=== PATIENT | male | born 1980 ===

== ENCOUNTER → 2025-06-02 | Emergency (ER) | payer SELFPAY ==
[2025-06-02] MEDS: Ketorolac 30 MG/ML SDV IM ONE (09:46)
[2025-06-02] MEDS: Orphenadrine 60 MG/2 ML Inj IM ONE (09:47)
== END | disposition home or self-care (01) ==
LOC: MW.ED 09:17
DX: M54.41 Lumbago with sciatica, right side (principal); M51.26 Other intervertebral disc displacement, lumbar region; R26.89 Other abnormalities of gait and mobility
CPT/HCPCS: 72131; 96372; 99283; A9270; J1885; J2360; J8540